=== PATIENT | female | born 1965 | race Caucasian/White ===

== ENCOUNTER 2021-02-23 12:24 | Emergency (ER) | payer BC ==
[~2021-02-23] VITALS: Ht 165.1 cm; Wt 81.0 kg
[2021-02-23] MEDS ORDERED: TETANUS, DIPHTHERIA, PERTUSSIS VAC/PF 0.5ML (>7YR OLD) IM ONE (13:00)
[2021-02-23] MEDS ORDERED: BACITRACIN ZINC OINT UDPKT TOP ONE (13:00)
[2021-02-23] MEDS ORDERED: LIDOCAINE HCL/PF 1% 10 MG/ML 5ML VIAL INFIL ONE (13:00)
[2021-02-23] MEDS ORDERED: HYDROCODONE/ACETAMINOPHEN 5/325MG TABLET PO ONE (13:00)
[2021-02-23 13:50] VITALS: BP 143/67
[2021-02-23] MEDS ORDERED: HYDR-4346 MT (15:28)
[2021-02-23] MEDS ORDERED: BO1 TP (15:28)
== END 2021-02-23 16:07 | disposition home or self-care (01) ==
LOC: ER 12:49
DX: S01.81XA Laceration without foreign body of other part of head, initial encounter (principal); W01.118A Fall on same level from slipping, tripping and stumbling with subsequent striking against other sharp object, initial encounter; Y93.89 Activity, other specified; Y92.010 Kitchen of single-family (private) house as the place of occurrence of the external cause; R03.0 Elevated blood-pressure reading, without diagnosis of hypertension
CPT/HCPCS: 12015; 70450; 70486; 90471; 90715; 99285; J3490

== ENCOUNTER 2021-02-26 07:31 | Emergency (ER) | payer BC ==
[~2021-02-26] VITALS: Ht 147.3 cm; Wt 77.0 kg
[~2021-02-26 07:31] MED LIST: BO1 TP; HYDR-4346 MT
[2021-02-26 07:54] VITALS: BP 163/87
== END 2021-02-26 08:08 | disposition home or self-care (01) ==
LOC: ER 07:31
DX: Z48.00 Encounter for change or removal of nonsurgical wound dressing (principal); R03.0 Elevated blood-pressure reading, without diagnosis of hypertension
CPT/HCPCS: 99281